=== PATIENT | female | born 1965 | race Caucasian/White ===

== ENCOUNTER 2017-11-18 19:21 | Emergency (ER) | payer MEDICAID ==
[~2017-11-18] VITALS: Ht 157.5 cm; Wt 72.9 kg
[2017-11-18 19:29] VITALS: BP 191/86; PULSE 99; RESP 14; TEMP 98.7; O2SAT 98
[2017-11-18] MEDS ORDERED: SODIUM CHLOR 0.9% 1000 ML INJ 1,000 ML IV SCH (19:39)
[2017-11-18] MEDS ORDERED: SODIUM CHLORIDE 0.9% FLUSH 10 ML FLUSH IV FLUSH PRN (19:45)
[2017-11-18] MEDS ORDERED: KETOROLAC TROMETHAMINE 30 MG/ML (IVP) VIAL IVP ONE (19:45)
[2017-11-18] MEDS ORDERED: metroNIDAZOLE 500 MG INJ 100 ML IV ONE (19:45)
[2017-11-18 19:58] VITALS: O2SAT 98
[2017-11-18 20:00] LABS: AUTOMATED NEUTROPHIL # 12.2 TH/MM3 (1.8-7.7); BASOPHIL # 0.4 TH/MM3 (0-0.2); BASOPHIL % 2.9 % (0.0-2.0); EOSINOPHIL # 0.1 TH/MM3 (0-0.4); EOSINOPHIL % 0.8 % (0.0-4.0); HEMATOCRIT 43.7 % (35.0-46.0); HEMOGLOBIN 14.4 GM/DL (11.6-15.3); LYMPH % 10.8 % (9.0-44.0); LYMPHOCYTE # 1.6 TH/MM3 (1.0-4.8); MEAN CELL VOLUME 88.5 FL (80.0-100.0); MEAN CORPUSCULAR HEMOGLOBIN 29.2 PG (27.0-34.0); MEAN PLATELET VOLUME 9.4 FL (7.0-11.0); MONOCYTE # 0.6 TH/MM3 (0-0.9); NEUT % 81.5 % (16.0-70.0); PLATELET COUNT 192 TH/MM3 (150-450); RED BLOOD COUNT 4.94 MIL/MM3 (4.00-5.30); RED CELL DISTRIBUTION WIDTH 13.5 % (11.6-17.2); WHITE BLOOD COUNT 14.9 TH/MM3 (4.0-11.0)
[2017-11-18 20:10] LABS: CHLORIDE 102 MEQ/L (98-107); SODIUM (NA) 136 MEQ/L (136-145)
[2017-11-18 20:13] LABS: CALCIUM 9.4 MG/DL (8.5-10.1)
[2017-11-18 20:14] LABS: ALBUMIN 4.3 GM/DL (3.4-5.0); BICARBONATE 27.6 MEQ/L (21.0-32.0); BLOOD UREA NITROGEN 18 MG/DL (7-18); GLUCOSE,RANDOM 103 MG/DL (74-106)
[2017-11-18 20:17] LABS: ALT (GPT) 85 U/L (10-53); AST (GOT) 87 U/L (15-37); CREATININE 0.61 MG/DL (0.50-1.00); GLOMERULAR FILTRATION RATE 102 ML/MIN (>89)
[2017-11-18 20:18] LABS: TOTAL BILIRUBIN ADULT 0.6 MG/DL (0.2-1.0); TOTAL PROTEIN 8.2 GM/DL (6.4-8.2)
[2017-11-18 20:20] LABS: ALKALINE PHOSPHATASE 125 U/L (45-117)
[2017-11-18 20:39] LABS: BILIRUBIN, URINE NEG (NEG); BLOOD, URINE MOD (NEG); GLUCOSE,URINE NEG (NEG); KETONE, URINE NEG (NEG); NITRITE,URINE POS (NEG); PH, URINE 6.5 (5.0-8.5); URINE COLOR YELLOW (YELLW/STRAW); URINE LEUKOCYTE ESTERASE MOD (NEG)
--- NOTE | 2017-11-18 20:44 | RADRPT ---
EXAM DATE/TIME: 11/18/2017 20:23 [place] COMPARISON: No previous studies available for comparison. INDICATIONS : Flank pain. ORAL CONTRAST: No oral contrast ingested. RADIATION DOSE: 13.42 CTDIvol (mGy) MEDICAL HISTORY : Hypertension. SURGICAL HISTORY : Appendectomy. ENCOUNTER: Initial ACUITY: 1 day PAIN SCALE: 5/10 LOCATION: flank TECHNIQUE: Volumetric scanning of the abdomen and pelvis was performed. Using automated exposure control and ad justment of the mA and/or kV according to patient size, radiation dose was kept as low as reasonably achievable to obtain optimal diagnostic quality images. DICOM format image data is available electro nically for review and comparison. FINDINGS: LOWER LUNGS: The visualized lower lungs are clear. LIVER: Homogeneous density without lesion. There is no dilation of the biliary tree. No calcified gallston es. SPLEEN: Normal size without lesion. PANCREAS: Within normal limits. KIDNEYS: Normal in size and shape. There is no mass, stone, or hydronephrosis. ADRENAL GLANDS: Within normal limits. VASCULAR: There is no aortic aneurysm. BOWEL/MESENTERY: The stomach, small bowel, and colon demonstrate no acute abnormality. There is no free intraperitone al air or fluid. ABDOMINAL WALL: Within normal limits. RETROPERITONEUM: There is no lymphadenopathy. BLADDER: No wall thickening or mass. REPRODUCTIVE: Within normal limits. INGUINAL: There is no lymphadenopathy or hernia. MUSCULOSKELETAL: Within normal limits for patient age. CONCLUSION: No acute obstructive uropathy. Caden Montez MD on November 18, 2017 at 20:40 Board Certified Radiologist. This report was verified electronically.
[2017-11-18 20:53] LABS: BACTERIA, URINE MANY /hpf; SQUAMOUS EPITHELIAL CELL URINE 0-5 /hpf (0-5); WHITE BLOOD CELL CLUMPS FEW
[2017-11-18 21:23] VITALS: BP 185/87; PULSE 90; RESP 16; O2SAT 97
[2017-11-18] MEDS ORDERED: METR250 PO (21:32)
[2017-11-18] MEDS ORDERED: TRAM50 PO (21:32)
--- NOTE | 2017-11-18 21:32 | PD ---
HPI . complaint Chief Complaint: Complaint Time Seen by Provider: 19:34 Travel History International Travel<30 days: No Contact w/Intl Traveler<30days: No Traveled to known affect area: No History of Present Illness HPI 52-year-old female complains of dysuria urgency frequency, fever, bilateral flank pain for the past 2 days. Fevers unquantified. Patient has taken Tylenol for same. Denies any rashes, nausea vomiting diarrhea. Patient has no history of kidney stones but does have a history of urinary tract infection prior PFSH Past Medical History Narrative Medical Past medical history reviewed Arthritis: No Asthma: No Autoimmune Disease: No Blood Disorders: No Anxiety: No Depression: No Heart Rhythm Problems: Yes (SVT) Cancer: No Cardiovascular Problems: Yes High Cholesterol: No Chest Pain: Yes Congestive Heart Failure: No COPD: No Cerebrovascular Accident: No Diabetes: No Diminished Hearing: No Endocrine: No GERD: No Glaucoma: No Genitourinary: No Headaches: Yes (OCCASSIONAL) Hepatitis: No Hiatal Hernia: No Hypertension: Yes Immune Disorder: No Implanted Vascular Access Dvce: Yes Kidney Stones: No Musculoskeletal: No Neurologic: No Psychiatric: No Reproductive: No Respiratory: No Migraines: Yes Myocardial Infarction: No Renal Failure: No Seizures: No Sickle Cell Disease: No Sleep Apnea: No Thyroid Disease: No Ulcer: No Tetanus Vaccination: Unknown Influenza Vaccination: No ?: Not Menopausal: Yes : 3 Para: 3 Past Surgical History Abdominal Surgery: Yes (OPEN 1977) AICD: No Appendectomy: Yes (OPEN 1977) Arteriovenous Shunt: No Body Medical Devices: BREAST IMLANTS Cardiac Surgery: No Cholecystectomy: No Ear Surgery: No Endocrine Surgery: No Eye Surgery: No Genitourinary Surgery: No Gynecologic Surgery: No Insulin Pump: No Joint Replacement: No Oral Surgery: No Pacemaker: No Thoracic Surgery: No Other Surgery: Yes (BREAST AUGMENTATION, Heart Ablation) Social History Alcohol Use: Yes (VERY OCCASSIONAL/WINE) Tobacco Use: Yes Substance Use: No Allergies-Medications (Allergen,Severity, Reaction): Coded Allergies: levofloxacin (Unverified Allergy, Severe, HIVES, SHORTNESS OF BREATH, ) penicillin G (Unverified Allergy, Intermediate, HIVES, 11/18/17) vancomycin (Unverified Allergy, Intermediate, HIVES, SOB, 11/18/17) *MDRO Multi-Drug Resistant Organism (Verified Allergy, Unknown, 03/06/16) MRSA Reported Meds & Prescriptions Reported Meds & Active Scripts Active No Active Prescriptions or Reported Medications Narrative Medication Allergies and medications reviewed Review of Systems Except as stated in HPI: all other systems reviewed are Neg General / Constitutional: Positive: Fever, Chills Eyes: No: Visual changes HENT: No: Headaches, Neck Stiffness, Neck Pain Cardiovascular: No: Chest Pain or Discomfort Respiratory: No: Shortness of Breath Gastrointestinal: No: Nausea, Abdominal Pain Genitourinary: Positive: Urgency, Frequency, Dysuria, Flank Pain, No: Hematuria Musculoskeletal: No: Myalgias, Arthralgias, Pain Skin: No Rash Neurologic: No: Weakness Psychiatric: No: Depression Endocrine: No: Polydipsia Hematologic/Lymphatic: No: Easy Bruising Physical Exam Narrative GENERAL: Awake and alert and oriented 3 no acute distress. Vital signs afebrile normal and stable SKIN: Warm and dry. Color is normal diaphoresis and was HEAD: Atraumatic. Normocephalic. EYES: Pupils equal and round. No scleral icterus. No injection or drainage. ENT: No nasal bleeding or discharge. Mucous membranes pink and moist. NECK: Trachea midline. No JVD. Supple nontender full range of motion CARDIOVASCULAR: Regular rate and rhythm. S1-S2 no murmurs rubs gallops RESPIRATORY: No accessory muscle use. Clear to auscultation. Breath sounds equal bilaterally. GASTROINTESTINAL: Abdomen soft, non-tender, nondistended. Hepatic and splenic margins not palpable. CVA tenderness bilateral MUSCULOSKELETAL: Extremities without clubbing, cyanosis, or edema. No obvious deformities. NEUROLOGICAL: Awake and alert. No obvious cranial nerve deficits. Motor grossly within normal limits. Five out of 5 muscle strength in the arms and legs. Normal speech. PSYCHIATRIC: Appropriate mood and affect; insight and judgment normal. Data Data Last Documented VS Vital Signs Date Time Temp Pulse Resp B/P (MAP) Pulse Ox O2 Delivery O2 Flow Rate FiO2 11/18/17 21:23 90 16 185/87 (119) 97 Room Air 11/18/17 19:29 98.7 Orders Orders Complete Blood Count With Diff (11/18/17 19:39) Comprehensive Metabolic Panel (11/18/17 19:39) Urinalysis - C+S If Indicated (11/18/17 19:39) Ct Abd/Pel W/O Iv Contrast (11/18/17 19:39) Iv Access Insert/Monitor (11/18/17 19:39) Ecg Monitoring (11/18/17 19:39) Oximetry (11/18/17 19:39) Metronidazole 500 Mg Inj (Flagyl 500 Mg (11/18/17 19:45) Sodium Chlor 0.9% 1000 Ml Inj (Ns 1000 M (11/18/17 19:39) Sodium Chloride 0.9% Flush (Ns Flush) (11/18/17 19:45) Ketorolac Inj (Toradol Inj) (11/18/17 19:45) Ed Urine Pregnancytest Poc (11/18/17 19:39) Urine Culture (11/18/17 20:30) Hepatitis Profile (11/18/17 20:54) Labs Laboratory Tests Test 11/18/17 19:49 3 20:30 White Blood Count 14.9 TH/MM3 Red Blood Count 4.94 MIL/MM3 Hemoglobin 14.4 GM/DL Hematocrit 43.7 % Mean Corpuscular Volume 88.5 FL Mean Corpuscular Hemoglobin 29.2 PG Mean Corpuscular Hemoglobin Concent 33.0 % Red Cell Distribution Width 13.5 % Platelet Count 192 TH/MM3 Mean Platelet Volume 9.4 FL Neutrophils (%) (Auto) 81.5 % Lymphocytes (%) (Auto) 10.8 % Monocytes (%) (Auto) 4.0 % Eosinophils (%) (Auto) 0.8 % Basophils (%) (Auto) 2.9 % Neutrophils # (Auto) 12.2 TH/MM3 Lymphocytes # (Auto) 1.6 TH/MM3 Monocytes # (Auto) 0.6 TH/MM3 Eosinophils # (Auto) 0.1 TH/MM3 Basophils # (Auto) 0.4 TH/MM3 CBC Comment DIFF FINAL Differential Comment Blood Urea Nitrogen 18 MG/DL Creatinine 0.61 MG/DL Random Glucose 103 MG/DL Total Protein 8.2 GM/DL Albumin 4.3 GM/DL Calcium Level 9.4 MG/DL Alkaline Phosphatase 125 U/L Aspartate Amino Transf (AST/SGOT) 87 U/L Alanine Aminotransferase (ALT/SGPT) 85 U/L Total Bilirubin 0.6 MG/DL Sodium Level 136 MEQ/L Potassium Level 3.9 MEQ/L Chloride Level 102 MEQ/L Carbon Dioxide Level 27.6 MEQ/L Anion Gap 6 MEQ/L Estimat Glomerular Filtration Rate 102 ML/MIN Urine Color YELLOW Urine Turbidity SL CLOUDY Urine pH 6.5 Urine Specific [place] 1.010 Urine Protein NEG mg/dL Urine Glucose (UA) NEG mg/dL Urine Ketones NEG mg/dL Urine Occult Blood MOD Urine Nitrite POS Urine Bilirubin NEG Urine Urobilinogen 0.2 MG/DL Urine Leukocyte Esterase MOD Urine RBC 4-9 /hpf Urine WBC 50-99 /hpf Urine WBC Clumps FEW Urine Squamous Epithelial Cells 0-5 /hpf Urine Bacteria MANY /hpf Microscopic Urinalysis Comment CULTURE INDICATED MDM Medical Decision Making Medical Screen Exam Complete: Yes Emergency Medical Condition: Yes Medical Record Reviewed: Yes Differential Diagnosis Urinary tract infection, pyelonephritis, infected kidney stone Narrative Course Laboratory examinations reviewed, patient has elevated white blood cell count, and urinalysis consistent with urinary tract infection. Patient also has incidental notation of elevated liver function test. This was discussed with patient patient does not recall having this before patient does not recall having history of viral hepatitis. Patient treated with IV antibiotics and IV fluids as well as IV pain medications and noted significant improvement. Patient is tolerating p.o. well, looks greatly improved. Discharge Diagnosis Primary Impression: Pyelonephritis Additional Impressions: Abnormal liver function test Hepatitis Patient Instructions: General Instructions, Kidney Infection (ED), Liver Profile (GEN) Additional Instructions: Flagyl 250 mg 3 times daily for 7 days. Drink plenty of fluids. Your liver function tests were elevated, a hepatitis profile was sent for evaluation. Results within 3-5 days. Follow-up with your primary care provider. Return promptly for worsening Scripts Tramadol (Ultram) 50 Mg Tab 50 MG PO Q8H Y for PAIN, #10 TAB 0 Refills Prov: Bernard Stout MD 11/18/17 Metronidazole (Flagyl) 250 Mg Tab 250 MG PO TID for Infection for 7 Days, TAB 0 Refills Prov: Bernard Stout MD 11/18/17 Disposition: 01 DISCHARGE HOME Condition: Stable Bernard Stout MD Nov 18, 2017 21:32
[2017-11-18 21:49] VITALS: BP 180/86
[2017-11-21 10:18] LABS: HEPATITIS A AB IGM NEGATIVE (NEGATIVE); HEPATITIS B CORE AB IGM NEGATIVE (NEGATIVE)
== END 2017-11-18 22:00 | disposition home or self-care (01) ==
LOC: PHED 19:21
DX: N12 Tubulo-interstitial nephritis, not specified as acute or chronic (principal); B96.20 Unspecified Escherichia coli [E. coli] as the cause of diseases classified elsewhere; R79.89 Other specified abnormal findings of blood chemistry; K75.9 Inflammatory liver disease, unspecified; Z72.0 Tobacco use
CPT/HCPCS: 74176; 80053; 80074; 81001; 84703; 85025; 87077; 87086; 87186; 96365; 96366; 96375; 99284; J1885; J7030

== ENCOUNTER 2017-11-21 08:40 | Inpatient (IN) | payer MEDICAID ==
[~2017-11-21] VITALS: Ht 157.5 cm; Wt 80.2 kg
[~2017-11-21 08:40] MED LIST: METR250 PO; TRAM50 PO
[2017-11-21 08:43] VITALS: BP 128/95; PULSE 112; RESP 18; TEMP 98; O2SAT 98
[2017-11-21 09:08] LABS: BILIRUBIN, URINE MOD (NEG); BLOOD, URINE LARGE (NEG); GLUCOSE,URINE NEG (NEG); KETONE, URINE 15 mg/dL (NEG); NITRITE,URINE POS (NEG); PH, URINE 5.5 (5.0-8.5); URINE LEUKOCYTE ESTERASE MOD (NEG)
[2017-11-21] MEDS ORDERED: AZTREONAM INJ 1,000 MG in SODIUM CHLORIDE 0.9% INJ 100 ML IV STA (09:14)
[2017-11-21] MEDS ORDERED: GENTAMICIN IV STA (09:14)
[2017-11-21] MEDS ORDERED: SODIUM CHLORIDE 0.9% IV STA (09:14)
[2017-11-21 09:15] LABS: URINE COLOR AMBER (YELLW/STRAW)
--- NOTE | 2017-11-21 09:18 | PD ---
HPI Chief Complaint: Complaint Time Seen by Provider: 09:00 Travel History International Travel<30 days: No Contact w/Intl Traveler<30days: No Traveled to known affect area: No History of Present Illness HPI This 52-year-old female is complaining of right flank pain fever. She was a patient here last Tuesday. At that time she was complaining of flank pain. She been having fever she was found to have a urinary tract infection. Her white count was 14,000. Her urine showed 50-99 white cells. Culture has grown E. coli which is resistant to sulfa. She had a CT scan which was negative for calculi. she had been started on Flagyl 250 mg 3 times a day. She says she has not improved. She has had fever as high as 103.7 on Tuesday. She has had drenching sweats. She has had a lot of flank pain, the right is a lot worse than the left. She has had urinary tract infection in the past. She has also been treated for hypertension in the past but she did not tolerate medications well. Since a lot of the medications made her lethargic and she is not taking anything now. History Past Medical History Tetanus Vaccination: > 5 Years Influenza Vaccination: No Menopausal: Yes : 3 Para: 3 Social History Alcohol Use: Yes (OCCASSIONAL/WINE) Tobacco Use: Yes (1/2 ppd) Allergies-Medications (Allergen,Severity, Reaction): Coded Allergies: levofloxacin (Unverified Allergy, Severe, HIVES, SHORTNESS OF BREATH, ) penicillin G (Unverified Allergy, Intermediate, HIVES, 11/21/17) vancomycin (Unverified Allergy, Intermediate, HIVES, SOB, 11/21/17) *MDRO Multi-Drug Resistant Organism (Verified Allergy, Unknown, 11/21/17) MRSA sulfamethoxazole (Verified Allergy, Unknown, 11/21/17) trimethoprim (Verified Allergy, Unknown, 11/21/17) Reported Meds & Prescriptions Reported Meds & Active Scripts Active Ultram (Tramadol HCl) 50 Mg Tab 50 Mg PO Q8H PRN Flagyl (Metronidazole) 250 Mg Tab 250 Mg PO TID 7 Days Review of Systems General / Constitutional: Positive: Fever, Chills Eyes: No: Diploplia, Blurred Vision HENT: No: Headaches, Vertigo Cardiovascular: No: Chest Pain or Discomfort, Palpitations Respiratory: No: Cough, Shortness of Breath Gastrointestinal: No: Nausea, Constipation Genitourinary: Positive: Frequency, Flank Pain Musculoskeletal: No: Myalgias, Arthralgias Skin: No Rash, No Itching Neurologic: Positive: Weakness Endocrine: No: Heat Intolerance, Cold Intolerance Hematologic/Lymphatic: No: Easy Bruising Physical Exam Narrative GENERAL: Well-developed female SKIN: Focused skin assessment warm/dry. HEAD: Atraumatic. Normocephalic. EYES: Pupils equal and round. No scleral icterus. No injection or drainage. ENT: No nasal bleeding or discharge. Mucous membranes pink and moist. NECK: Trachea midline. No JVD. CARDIOVASCULAR: Regular rate and rhythm. No murmur appreciated. RESPIRATORY: No accessory muscle use. Clear to auscultation. Breath sounds equal bilaterally. GASTROINTESTINAL: Abdomen soft, non-tender, nondistended. Hepatic and splenic margins not palpable. There is right CVA tenderness MUSCULOSKELETAL: No obvious deformities. No clubbing. No cyanosis. No edema. NEUROLOGICAL: Awake and alert. No obvious cranial nerve deficits. Motor grossly within normal limits. Normal speech. PSYCHIATRIC: Appropriate mood and affect; insight and judgment normal. Data Data Last Documented VS Vital Signs Date Time Temp Pulse Resp B/P (MAP) Pulse Ox O2 Delivery O2 Flow Rate FiO2 11/21/17 10:35 17 11/21/17 08:43 98.0 112 128/95 (106) 98 Orders Orders Urinalysis - C+S If Indicated (11/21/17 08:47) Sepsis Workup Initiated (11/21/17 ) Complete Blood Count With Diff (11/21/17 09:14) Comprehensive Metabolic Panel (11/21/17 09:14) Lactic Acid Sepsis Protocol (11/21/17 09:14) Blood Culture (11/21/17 09:14) Ecg Monitoring (11/21/17 09:14) Iv Access Insert/Monitor (11/21/17 09:14) Oximetry (11/21/17 09:14) Aztreonam Inj (Azactam Inj) (11/21/17 09:14) Gentamicin Inj (Gentamicin Inj) (11/21/17 09:14) Sodium Chlor 0.9% 1000 Ml Inj (Ns 1000 M (11/21/17 09:30) Ibuprofen (Motrin) (11/21/17 09:30) Urine Culture (11/21/17 08:50) Labs Laboratory Tests Test 11/21/17 08:50 11/21/17 09:15 11/21/17 09:20 11/21/17 09:55 Urine Color [place]AB[place]A Urine Turbidity CLOUDY Urine pH 5.5 Urine Specific [place] 1.025 Urine Protein 300 OR GREATER mg/dL Urine Glucose (UA) NEG mg/dL Urine Ketones 15 mg/dL Urine Occult Blood LARGE Urine Nitrite POS Urine Bilirubin MOD Urine Leukocyte Esterase MOD Urine RBC 4-9 /hpf Urine WBC 100-200 /hpf Urine WBC Clumps MOD Urine Squamous Epithelial Cells > 8 /hpf Urine Amorphous Sediment FEW Urine Bacteria MANY /hpf Microscopic Urinalysis Comment CULTURE INDICATED White Blood Count 16.2 TH/MM3 Red Blood Count 4.90 MIL/MM3 Hemoglobin 14.9 GM/DL Hematocrit 43.6 % Mean Corpuscular Volume 88.9 FL Mean Corpuscular Hemoglobin 30.4 PG Mean Corpuscular Hemoglobin Concent 34.2 % Red Cell Distribution Width 13.5 % Platelet Count 168 TH/MM3 Mean Platelet Volume 9.0 FL Neutrophils (%) (Auto) 91.4 % Lymphocytes (%) (Auto) 2.5 % Monocytes (%) (Auto) 5.0 % Eosinophils (%) (Auto) 0.3 % Basophils (%) (Auto) 0.8 % Neutrophils # (Auto) 14.9 TH/MM3 Lymphocytes # (Auto) 0.4 TH/MM3 Monocytes # (Auto) 0.8 TH/MM3 Eosinophils # (Auto) 0.0 TH/MM3 Basophils # (Auto) 0.1 TH/MM3 CBC Comment DIFF FINAL Differential Comment Lactic Acid Level 1.5 mmol/L Blood Urea Nitrogen 16 MG/DL Creatinine 1.00 MG/DL Random Glucose 127 MG/DL Total Protein 7.7 GM/DL Albumin 2.7 GM/DL Calcium Level 9.5 MG/DL Alkaline Phosphatase 211 U/L Aspartate Amino Transf (AST/SGOT) 43 U/L Alanine Aminotransferase (ALT/SGPT) 99 U/L Total Bilirubin 2.2 MG/DL Sodium Level 134 MEQ/L Potassium Level 4.2 MEQ/L Chloride Level 103 MEQ/L Carbon Dioxide Level 23.6 MEQ/L Anion Gap 7 MEQ/L Estimat Glomerular Filtration Rate 58 ML/MIN [facility] Medical Decision Making Medical Screen Exam Complete: Yes Emergency Medical Condition: Yes Medical Record Reviewed: Yes Differential Diagnosis Differential includes pyelonephritis, renal colic Narrative Course Patient has not responded to Flagyl. She does have multiple drug allergies including penicillin sulfa vancomycin and Levaquin. I have initiated aztreonam and gentamicin. She has failed outpatient treatment. White count today is 16, 000 Diagnosis Primary Impression: Urinary tract infection Admitting Information Admitting Physician Requests: Admit Gama Alonso MD Nov 21, 2017 09:18
[2017-11-21 09:25] LABS: AMORPHOUS SEDIMENT, URINE FEW; BACTERIA, URINE MANY /hpf; SQUAMOUS EPITHELIAL CELL URINE > 8 /hpf (0-5); WBC, URINE 100-200 /hpf (0-5)
[2017-11-21 09:26] LABS: WHITE BLOOD CELL CLUMPS MOD
[2017-11-21] MEDS ORDERED: IBUPROFEN 400 MG TAB PO ONE (09:30)
[2017-11-21] MEDS ORDERED: SODIUM CHLOR 0.9% 1000 ML INJ 1,000 ML IV ONE (09:30)
[2017-11-21 09:48] LABS: AUTOMATED NEUTROPHIL # 14.9 TH/MM3 (1.8-7.7); BASOPHIL # 0.1 TH/MM3 (0-0.2); BASOPHIL % 0.8 % (0.0-2.0); EOSINOPHIL % 0.3 % (0.0-4.0); HEMATOCRIT 43.6 % (35.0-46.0); HEMOGLOBIN 14.9 GM/DL (11.6-15.3); LYMPH % 2.5 % (9.0-44.0); LYMPHOCYTE # 0.4 TH/MM3 (1.0-4.8); MEAN CELL VOLUME 88.9 FL (80.0-100.0); MEAN CORPUSCULAR HEMOGLOBIN 30.4 PG (27.0-34.0); MEAN CORPUSCULAR HGB CONC 34.2 % (32.0-36.0); MONOCYTE # 0.8 TH/MM3 (0-0.9); NEUT % 91.4 % (16.0-70.0); PLATELET COUNT 168 TH/MM3 (150-450); RED CELL DISTRIBUTION WIDTH 13.5 % (11.6-17.2); WHITE BLOOD COUNT 16.2 TH/MM3 (4.0-11.0)
[2017-11-21 10:16] LABS: CHLORIDE 103 MEQ/L (98-107); SODIUM (NA) 134 MEQ/L (136-145)
[2017-11-21 10:19] LABS: CALCIUM 9.5 MG/DL (8.5-10.1)
[2017-11-21 10:29] LABS: ALBUMIN 2.7 GM/DL (3.4-5.0); ALKALINE PHOSPHATASE 211 U/L (45-117); ALT (GPT) 99 U/L (10-53); AST (GOT) 43 U/L (15-37); BICARBONATE 23.6 MEQ/L (21.0-32.0); BLOOD UREA NITROGEN 16 MG/DL (7-18); GLOMERULAR FILTRATION RATE 58 ML/MIN (>89); GLUCOSE,RANDOM 127 MG/DL (74-106); TOTAL BILIRUBIN ADULT 2.2 MG/DL (0.2-1.0); TOTAL PROTEIN 7.7 GM/DL (6.4-8.2)
[2017-11-21 11:20] VITALS: RESP 17; O2SAT 97
[2017-11-21 11:28] VITALS: BP 127/71; PULSE 87; RESP 17; O2SAT 98
[2017-11-21] MEDS ORDERED: SODIUM CHLORIDE 0.9% FLUSH 10 ML FLUSH IV FLUSH PRN (11:30)
[2017-11-21] MEDS ORDERED: ACETAMINOPHEN 325 MG TAB PO PRN (11:30)
[2017-11-21] MEDS ORDERED: SENNOSIDES 8.6 MG TAB PO PRN (11:30)
[2017-11-21] MEDS ORDERED: NALOXONE HCL 0.4 MG/ML AMP IV PUSH PRN (11:30)
[2017-11-21] MEDS: SODIUM CHLOR 0.9% 1000 ML INJ 1,000 ML IV SCH ×2 (12:54→22:05)
[2017-11-21 13:00] VITALS: BP 129/97; PULSE 88; RESP 16; TEMP 97.9; O2SAT 94
--- NOTE | 2017-11-21 13:45 | HHI.HP ---
[facility] Service [place] [facility] Primary Care Physician No Primary Care Physician Admission Diagnosis UTI Diagnoses: Chief Complaint: Fever with the dysuria Travel History International Travel<30 Days: No Contact w/Intl Traveler <30 Da: No Traveled to Known Affected Are: No Sepsis Criteria SIRS Criteria (2 or more): Heart rate over 90, WBC > 40884, < 4000 or > 10% bands Sepsis Criteria (SIRS+source): Infect source susp/known Criteria Outcome: Meets sepsis criteria History of Present Illness This patient is a very pleasant 52-year-old female with history of SVT with cardiac ablation. Overall she has been in a reasonable state of health until the last several days when she started having severe dysuria with fever. Her fever was as high as 103.7. She came to the hospital on Tuesday with these complaints and was given antibiotics for urinary tract infection. Cultures have since resulted in it is an E. coli which is sensitive to multiple antibiotics however the patient has a allergy profile which reports severe sensitivity to levofloxacin, penicillin vancomycin, sulfa and trimethoprim. Is seen back in the emergency room today due to increased symptoms of fever and dysuria despite antibiotic therapy with metronidazole. Patient has been admitted to the hospital for treatment of urinary tract infection with evidence of sepsis. Patient has leukocytosis, fever and the source appears to be a urinary tract infection. Review of Systems Constitutional: DENIES: Diaphoretic episodes, Fatigue, Fever, Weight gain, Weight loss, Chills, Dizziness, Change in appetite, Night Sweats Endocrine: DENIES: Abnorml menstrual pattern, Heat/cold intolerance, Polydipsia , Polyuria, Polyphagia Eyes: DENIES: Blurred vision, Diplopia, Eye inflammation, Eye pain, Vision loss , Photosensitivity, Double Vision Ears, nose, mouth, throat: DENIES: Tinnitus, Hearing loss, Vertigo, Nasal discharge, Oral lesions, Throat pain, Hoarseness, Ear Pain, Running Nose, Epistaxis, Sinus Pain, Toothache, Odynophagia Respiratory: DENIES: Apneas, Cough, Snoring, Wheezing, Hemoptysis, Sputum production, Shortness of breath Cardiovascular: DENIES: Chest pain, Palpitations, Syncope, Dyspnea on Exertion , PND, Lower Extremity Edema, Orthopnea, Claudication Gastrointestinal: DENIES: Abdominal pain, Black stools, Bloody stools, Constipation, Diarrhea, Nausea, Vomiting, Difficulty Swallowing, Anorexia Genitourinary: COMPLAINS OF: Urinary frequency, Urgency, Dysuria, DENIES: Abnormal vaginal bleeding, Dysmenorrhea, Dyspareunia, Sexual dysfunction, Urinary incontinence, Hematuria, Nocturia, Vaginal discharge Musculoskeletal: COMPLAINS OF: Back pain, DENIES: Joint pain, Muscle aches, Stiffness, Joint Swelling, Neck pain Integumentary: DENIES: Abnormal pigmentation, Pruritus, Rash, Nail changes, Breast masses, Breast skin changes, Nipple discharge Hematologic/lymphatic: DENIES: Bruising, Lymphadenopathy Immunologic/allergic: DENIES: Eczema, Urticaria Neurologic: DENIES: Abnormal gait, Headache, Localized weakness, Paresthesias, Seizures, Speech Problems, Tremor, Poor Balance Psychiatric: DENIES: Anxiety, Confusion, Mood changes, Depression, Hallucinations, Agitation, Suicidal Ideation, Homicidal Ideation, Delusions Except as stated in HPI: all other systems reviewed are Neg Past Family Social History Past Medical History Arthritis SVT Past Surgical History Denies appendectomy Breast surgery Cardiac ablation Reported Medications Reviewed in the EMR, no prescription medications, takes ibuprofen as needed Allergies: Coded Allergies: levofloxacin (Unverified Allergy, Severe, HIVES, SHORTNESS OF BREATH, ) penicillin G (Unverified Allergy, Intermediate, HIVES, 11/21/17) vancomycin (Unverified Allergy, Intermediate, HIVES, SOB, 11/21/17) *MDRO Multi-Drug Resistant Organism (Verified Allergy, Unknown, 11/21/17) MRSA sulfamethoxazole (Verified Allergy, Unknown, 11/21/17) trimethoprim (Verified Allergy, Unknown, 11/21/17) Active Ordered Medications Reviewed in the EMR Family History Mother had diabetes and from complications of UTI with sepsis Father is alive and well Social History Patient smokes 1-1/2 packs a day for the last 20 years 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 SKIN: No rashes, ecchymoses or lesions. Cool and dry. HEAD: Atraumatic. Normocephalic. No temporal or scalp tenderness. EYES: Pupils equal round and reactive. Extraocular motions intact. No scleral icterus. No injection or drainage. ENT: Nose without bleeding, purulent drainage or septal hematoma. Throat without erythema, tonsillar hypertrophy or exudate. Uvula midline. Airway patent. NECK: Trachea midline. No JVD or lymphadenopathy. Supple, nontender, no meningeal signs. CARDIOVASCULAR: Regular rate and rhythm without murmurs, gallops, or rubs. RESPIRATORY: Clear to auscultation. Breath sounds equal bilaterally. No wheezes , rales, or rhonchi. GASTROINTESTINAL: Abdomen soft, non-tender, nondistended. No hepato-splenomegaly , or palpable masses. No guarding. MUSCULOSKELETAL: Right-sided flank pain, extremities without clubbing, cyanosis , or edema. No joint tenderness, effusion, or edema noted. No calf tenderness. Negative Homans sign bilaterally. NEUROLOGICAL: Awake and alert. Cranial nerves II through XII intact. Motor and sensory grossly within normal limits. Five out of 5 muscle strength in all muscle groups. Normal speech. Laboratory Laboratory Tests Test 11/21/17 08:50 11/21/17 09:15 11/21/17 09:20 11/21/17 09:55 Urine Color ARABELLA Urine Turbidity CLOUDY Urine pH 5.5 Urine Specific [place] 1.025 Urine Protein 300 OR GREATER Urine Glucose (UA) NEG Urine Ketones 15 Urine Occult Blood LARGE Urine Nitrite POS Urine Bilirubin MOD Urine Urobilinogen Urine Leukocyte Esterase MOD Urine RBC 4-9 Urine WBC 100-200 Urine WBC Clumps MOD Urine Squamous Epithelial Cells > 8 Urine Amorphous Sediment FEW Urine Bacteria MANY Microscopic Urinalysis Comment CULTURE INDICATED White Blood Count 16.2 Red Blood Count 4.90 Hemoglobin 14.9 Hematocrit 43.6 Mean Corpuscular Volume 88.9 Mean Corpuscular Hemoglobin 30.4 Mean Corpuscular Hemoglobin Concent 34.2 Red Cell Distribution Width 13.5 Platelet Count 168 Mean Platelet Volume 9.0 Neutrophils (%) (Auto) 91.4 Lymphocytes (%) (Auto) 2.5 Monocytes (%) (Auto) 5.0 Eosinophils (%) (Auto) 0.3 Basophils (%) (Auto) 0.8 Neutrophils # (Auto) 14.9 Lymphocytes # (Auto) 0.4 Monocytes # (Auto) 0.8 Eosinophils # (Auto) 0.0 Basophils # (Auto) 0.1 CBC Comment DIFF FINAL Differential Comment Lactic Acid Level 1.5 Blood Urea Nitrogen 16 Creatinine 1.00 Random Glucose 127 Total Protein 7.7 Albumin 2.7 Calcium Level 9.5 Alkaline Phosphatase 211 Aspartate Amino Transf (AST/SGOT) 43 Alanine Aminotransferase (ALT/SGPT) 99 Total Bilirubin 2.2 Sodium Level 134 Potassium Level 4.2 Chloride Level 103 Carbon Dioxide Level 23.6 Anion Gap 7 Estimat Glomerular Filtration Rate 58 Date/Time Source Procedure Growth Status 11/21/17 09:20 Blood Peripheral Aerobic Blood Culture Pending Received 11/21/17 09:20 Blood Peripheral Anaerobic Blood Culture Pending Received 11/21/17 08:50 Urine Clean Catch Urine Culture Pending Received Result Diagram: 11/21/17 0915 11/21/17 0955 Septic Shock Reassessment Septic shock perfusion: reassessment completed Caprini VTE Risk Assessment Caprini VTE Risk Assessment: No/Low Risk (score <= 1) Caprini Risk Assessment Model Point Value = 1 Point Value = 2 Point Value = 3 Point Value = 5 Age 41-60 Minor surgery BMI > 25 kg/m2 Swollen legs Varicose veins or History of unexplained or recurrent spontaneous Oral contraceptives or hormone replacement Sepsis (< 1 month) Serious lung disease, including pneumonia (< 1 month) Abnormal pulmonary function Acute myocardial infarction Congestive heart failure (< 1 month) History of inflammatory bowel disease Medical patient at bed rest Age 61-74 Arthroscopic surgery Major open surgery (> 45 min) Laparoscopic surgery (> 45 min) Malignancy Confined to bed (> 72 hours) Immobilizing plaster cast Central venous access Age >= 75 History of VTE Family history of VTE Factor V Leiden Prothrombin [id number] Lupus anticoagulant Anticardiolipin antibodies Elevated serum homocysteine Heparin-induced thrombocytopenia Other congenital or acquired thrombophilia Stroke (< 1 month) Elective arthroplasty Hip, pelvis, or leg fracture Acute spinal cord injury (< 1 month) Prophylaxis Regimen Total Risk Factor Score Risk Level Prophylaxis Regimen 0-1 Low Early ambulation 2 Moderate Order ONE of the following: *Sequential Compression Device (SCD) *Heparin 5000 units SQ BID 3-4 Higher Order ONE of the following medications: *Heparin 5000 units SQ TID *Enoxaparin/Lovenox 40 mg SQ daily (WT < 150 kg, CrCl > 30 mL/min) *Enoxaparin/Lovenox 30 mg SQ daily (WT < 150 kg, CrCl > 10-29 mL/min) *Enoxaparin/Lovenox 30 mg SQ BID (WT < 150 kg, CrCl > 30 mL/min) AND/OR *Sequential Compression Device (SCD) 5 or more Highest Order ONE of the following medications: *Heparin 5000 units SQ TID (Preferred with Epidurals) *Enoxaparin/Lovenox 40 mg SQ daily (WT < 150 kg, CrCl > 30 mL/min) *Enoxaparin/Lovenox 30 mg SQ daily (WT < 150 kg, CrCl > 10-29 mL/min) *Enoxaparin/Lovenox 30 mg SQ BID (WT < 150 kg, CrCl > 30 mL/min) AND *Sequential Compression Device (SCD) Assessment and Plan Problem List: (1) Urinary tract infection ICD Code: N39.0 - Urinary tract infection, site not specified Status: Acute Plan: Patient will continue with IV antibiotics, will follow up cultures from blood and urine Continue with pain medication renal us r/o stone Code Status full code Discussed Condition With patient, daughter Physician Certification 2 Midnight Certification Type: Admission for Inpatient Services Order for Inpatient Services The services are ordered in accordance with Medicare regulations or non- Medicare payer requirements, as applicable. In the case of services not specified as inpatient-only, they are appropriately provided as inpatient services in accordance with the 2-midnight benchmark. Estimated LOS (days): 3 3 days is the estimated time the patient will need to remain in the hospital, assuming treatment plan goals are met and no additional complications. Post-Hospital Plan: Carola Valdes MD Nov 21, 2017 13:45
[2017-11-21] MEDS: IBUPROFEN 400 MG TAB PO PRN ×2 (14:25→22:06)
--- NOTE | 2017-11-21 14:49 | RADRPT ---
EXAM DATE/TIME: 11/21/2017 13:45 [facility] COMPARISON: No previous studies available for comparison. INDICATIONS : Flank pain. Urinary tract infection. MEDICAL HISTORY : Hypertension. Methicillin-resistant Staphylococcus aureus. Flank pain. Urinary tract infection. Dys uria. SURGICAL HISTORY : Appendectomy. Breast augmentation. Cardiac ablation. ENCOUNTER: Initial ACUITY: 1 day PAIN SCORE: 4/10 LOCATION: Bilateral flank MEASUREMENTS: RIGHT KIDNEY: 13.1 x 5.8 x 7.9 cm LEFT KIDNEY: 11.7 x 5.4 x 5.9 cm FINDINGS: RIGHT KIDNEY: Renal cortex is normal in thickness and echotexture. No hydronephrosis, stone, or mass. LEFT KIDNEY: Renal cortex is normal in thickness and echotexture. No hydronephrosis, stone, or mass. BLADDER: Within normal limits given the degree of distension. CONCLUSION: Normal examination. Rafiq Sandoval Jr., MD on November 21, 2017 at 14:47 Board Certified Radiologist. This report was verified electronically.
[2017-11-21 16:00] VITALS: BP 142/89; PULSE 98; RESP 14; TEMP 98.6; O2SAT 98
[2017-11-21] MEDS ORDERED: ONDANSETRON HCL 4 MG/2 ML VIAL IV PUSH PRN (17:00)
[2017-11-21] MEDS: diphenhydrAMINE HCL 50 MG/ML VIAL IV PUSH PRN ×2 (17:11→23:39)
[2017-11-21 20:00] VITALS: BP 136/72; PULSE 95; RESP 18; TEMP 98.5; O2SAT 96
[2017-11-21] MEDS: AZTREONAM INJ 1,000 MG in SODIUM CHLORIDE 0.9% INJ 100 ML IV SCH (20:58)
[2017-11-21] MEDS: SODIUM CHLORIDE 0.9% FLUSH 10 ML FLUSH IV FLUSH SCH (21:00)
[2017-11-22] VITALS: BP 141/75; PULSE 91; RESP 19; TEMP 98.3; O2SAT 97
[2017-11-22 06:45] LABS: AUTOMATED NEUTROPHIL # 9.9 TH/MM3 (1.8-7.7); BASOPHIL % 0.3 % (0.0-2.0); EOSINOPHIL # 0.1 TH/MM3 (0-0.4); EOSINOPHIL % 0.9 % (0.0-4.0); HEMATOCRIT 35.9 % (35.0-46.0); LYMPH % 11.1 % (9.0-44.0); LYMPHOCYTE # 1.4 TH/MM3 (1.0-4.8); MEAN CELL VOLUME 89.9 FL (80.0-100.0); MEAN CORPUSCULAR HEMOGLOBIN 30.7 PG (27.0-34.0); MEAN CORPUSCULAR HGB CONC 34.2 % (32.0-36.0); MONO % 9.5 % (0.0-8.0); MONOCYTE # 1.2 TH/MM3 (0-0.9); NEUT % 78.2 % (16.0-70.0); PLATELET COUNT 161 TH/MM3 (150-450); RED BLOOD COUNT 3.99 MIL/MM3 (4.00-5.30); RED CELL DISTRIBUTION WIDTH 13.8 % (11.6-17.2); WHITE BLOOD COUNT 12.6 TH/MM3 (4.0-11.0)
[2017-11-22 07:03] LABS: HEMOGLOBIN 12.3 GM/DL (11.6-15.3)
[2017-11-22 07:07] LABS: BICARBONATE 22.9 MEQ/L (21.0-32.0); CALCIUM 8.5 MG/DL (8.5-10.1); CREATININE 0.9 MG/DL (0.50-1.00)
[2017-11-22 08:00] VITALS: BP 144/80; PULSE 87; RESP 18; TEMP 97.8; O2SAT 96
[2017-11-22] MEDS: IBUPROFEN 400 MG TAB PO PRN ×2 (08:51→17:54)
[2017-11-22] MEDS: POLYETHYLENE GLYCOL 17 GM PKG PO SCH (08:51)
[2017-11-22] MEDS: SODIUM CHLOR 0.9% 1000 ML INJ 1,000 ML IV SCH ×2 (08:55→17:55)
[2017-11-22] MEDS: SODIUM CHLORIDE 0.9% FLUSH 10 ML FLUSH IV FLUSH SCH ×2 (08:56→22:09)
[2017-11-22 12:00] VITALS: BP 137/88; PULSE 108; RESP 18; TEMP 97.8; O2SAT 96
[2017-11-22] MEDS ORDERED: POTASSIUM CHLORIDE 10 MEQ CONTROLLED RELEASE TAB PO ONE (12:00)
--- NOTE | 2017-11-22 12:04 | HHI.PR ---
Subjective Remarks Patient seen and evaluated today in follow-up for UTI. Mammogram negative rods in blood and urine cultures today. Patient appears to have a reaction to insect him but would like to continue this with Benadryl. ID consult pending due to patient's allergic reactions to multiple classes of antibiotics Leukocytosis improved Objective Vitals Vital Signs Date Time Temp Pulse Resp B/P (MAP) Pulse Ox O2 Delivery O2 Flow Rate FiO2 11/22/17 08:00 97.8 87 18 144/80 (101) 96 11/22/17 00:00 98.3 91 19 141/75 (97) 97 11/21/17 20:00 98.5 95 18 136/72 (93) 96 11/21/17 16:00 98.6 98 14 142/89 (106) 98 11/21/17 15:25 18 11/21/17 13:00 97.9 88 16 129/97 (108) 94 I/O 11/21/17 11/21/17 11/21/17 11/22/17 11/22/17 11/22/17 07:00 15:00 23:00 07:00 15:00 23:00 Intake Total 1300 ml 1420 ml Balance 1300 ml 1420 ml Intake Oral 100 ml 320 ml IV Total 1200 ml 1100 ml # Voids 4 3 # Bowel Movements 0 Result Diagram: 11/22/17 0523 11/22/17 0523 Imaging Last Impressions Renal Ultrasound 11/21/17 0000 Signed Impressions: Service Date/Time: Tuesday, November 21, 2017 13:45 - CONCLUSION: Normal examination. Rafiq Sandoval Jr., MD Objective Remarks GENERAL: This is a well-nourished, well-developed patient, in no apparent distress. CARDIOVASCULAR: Regular rate and rhythm without murmurs, gallops, or rubs. RESPIRATORY: Clear to auscultation. Breath sounds equal bilaterally. No wheezes , rales, or rhonchi. GASTROINTESTINAL: Abdomen soft, non-tender, nondistended. Normal active bowel sounds MUSCULOSKELETAL: Right flank pain, Extremities without clubbing, cyanosis, or edema. NEURO: Alert & Oriented x4 to person, place, time, situation. Moves all ext x4 A/P Problem List: (1) Urinary tract infection ICD Code: N39.0 - Urinary tract infection, site not specified Status: Acute Plan: Patient will continue with IV antibiotics with Benadryl, will follow up gram-negative rods in urine and blood Continue with pain medication Infectious disease consult pending due to multiple allergies and reactions Carola Aguilar MD Nov 22, 2017 12:04
[2017-11-22] MEDS: diphenhydrAMINE HCL 50 MG/ML VIAL IV PUSH PRN ×2 (12:53→22:05)
[2017-11-22] MEDS: AZTREONAM INJ 1,000 MG in SODIUM CHLORIDE 0.9% INJ 100 ML IV SCH ×2 (12:55→22:07)
[2017-11-22 16:00] VITALS: BP 133/84; PULSE 98; RESP 18; TEMP 97.6; O2SAT 96
--- NOTE | 2017-11-22 18:56 | PD.CONS ---
History of Present Illness Service Infectious disease Consult Requested By Dr Carola Aguilar Reason for Consult Urosepsis- multiple drug allergies Primary Care Physician No Primary Care Physician Diagnoses: (1) Multiple drug allergies (2) Gram negative septicemia (3) Urinary tract infection History of Present Illness 52 y/o started getting sick with painful micturition last - had shaking chills on Tue so came to ER - was sent home on Flagyl- did not feel better- had high fever Sat night and when she was getting worse she came in yesterday- She has multiple drug allergies so given Aztreonam but developed itching so now getting Benadryl . Blood cultures are positive for Gram negative patrica Review of Systems Constitutional: COMPLAINS OF: Diaphoretic episodes, Fever Eyes: DENIES: Blurred vision, Eye inflammation, Eye pain Ears, nose, mouth, throat: DENIES: Nasal discharge, Oral lesions, Throat pain Respiratory: DENIES: Cough, Wheezing, Sputum production Cardiovascular: DENIES: Chest pain, Palpitations, Dyspnea on Exertion Gastrointestinal: DENIES: Constipation, Diarrhea Genitourinary: COMPLAINS OF: Urinary frequency, Dysuria, DENIES: Hematuria Musculoskeletal: DENIES: Joint pain, Stiffness Integumentary: COMPLAINS OF: Pruritus, DENIES: Abnormal pigmentation Neurologic: DENIES: Headache, Localized weakness, Paresthesias Psychiatric: DENIES: Confusion Past Family Social History Allergies: Coded Allergies: levofloxacin (Unverified Allergy, Severe, HIVES, SHORTNESS OF BREATH, ) penicillin G (Unverified Allergy, Intermediate, HIVES, 11/21/17) vancomycin (Unverified Allergy, Intermediate, HIVES, SOB, 11/21/17) *MDRO Multi-Drug Resistant Organism (Verified Allergy, Unknown, 11/21/17) MRSA sulfamethoxazole (Verified Allergy, Unknown, 11/21/17) trimethoprim (Verified Allergy, Unknown, 11/21/17) Past Medical History Arthritis SVT Past Surgical History Denies appendectomy Breast surgery Cardiac ablation Reported Medications Reviewed in the EMR, no prescription medications, takes ibuprofen as needed Allergies: Coded Allergies: levofloxacin (Unverified Allergy, Severe, HIVES, SHORTNESS OF BREATH, ) penicillin G (Unverified Allergy, Intermediate, HIVES, 11/21/17) vancomycin (Unverified Allergy, Intermediate, HIVES, SOB, 11/21/17) *MDRO Multi-Drug Resistant Organism (Verified Allergy, Unknown, 11/21/17) MRSA sulfamethoxazole (Verified Allergy, Unknown, 11/21/17) trimethoprim (Verified Allergy, Unknown, 11/21/17) Active Ordered Medications Reviewed in the EMR Family History Mother had diabetes and from complications of UTI with sepsis Father is alive and well Social History Patient smokes 1-1/2 packs a day for the last 20 years 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 Cool and dry. HEAD: Atraumatic. Normocephalic. No temporal or scalp tenderness. EYES: Pupils equal round and reactive. Extraocular motions intact. No scleral icterus. No injection or drainage. ENT: Nose without bleeding, purulent drainage or septal hematoma. Throat without erythema, tonsillar hypertrophy or exudate. Uvula midline. Airway patent. NECK: Trachea midline. No JVD or lymphadenopathy. Supple, nontender, no meningeal signs. CARDIOVASCULAR: Regular rate and rhythm without murmurs, gallops, or rubs. RESPIRATORY: Clear to auscultation. Breath sounds equal bilaterally. No wheezes , rales, or rhonchi. GASTROINTESTINAL: Abdomen soft, non-tender, nondistended. No hepato-splenomegaly , or palpable masses. No guarding. MUSCULOSKELETAL: Extremities without clubbing, cyanosis, or edema. No joint tenderness, effusion, or edema noted. No calf tenderness. Negative Homans sign bilaterally. NEUROLOGICAL: Awake and alert. Cranial nerves II through XII intact. Motor and sensory grossly within normal limits. Five out of 5 muscle strength in all muscle groups. Normal speech. Laboratory Laboratory Tests Test 11/22/17 05:23 White Blood Count 12.6 Red Blood Count 3.99 Hemoglobin 12.3 Hematocrit 35.9 Mean Corpuscular Volume 89.9 Mean Corpuscular Hemoglobin 30.7 Mean Corpuscular Hemoglobin Concent 34.2 Red Cell Distribution Width 13.8 Platelet Count 161 Mean Platelet Volume 10.0 Neutrophils (%) (Auto) 78.2 Lymphocytes (%) (Auto) 11.1 Monocytes (%) (Auto) 9.5 Eosinophils (%) (Auto) 0.9 Basophils (%) (Auto) 0.3 Neutrophils # (Auto) 9.9 Lymphocytes # (Auto) 1.4 Monocytes # (Auto) 1.2 Eosinophils # (Auto) 0.1 Basophils # (Auto) 0.0 CBC Comment DIFF FINAL Differential Comment Blood Urea Nitrogen 13 Creatinine 0.90 Random Glucose 106 Calcium Level 8.5 Sodium Level 139 Potassium Level 3.4 Chloride Level 109 Carbon Dioxide Level 22.9 Anion Gap 7 Estimat Glomerular Filtration Rate 65 Date/Time Source Procedure Growth Status 11/21/17 09:20 Blood Peripheral Aerobic Blood Culture - Preliminary NO GROWTH IN 1 DAY Resulted 11/21/17 09:20 Anaerobic Blood Culture - Preliminary Gram Negative Patrica Resulted 11/21/17 08:50 Urine Clean Catch Urine Culture - Preliminary Gram Negative Patrica Resulted Result Diagram: 11/22/1752211/22/17522 Assessment and Plan Problem List: (1) Gram negative septicemia ICD Codes: A41.50 - Gram-negative sepsis, unspecified Status: Acute Plan: Likely secondary to kidney infection Continue IV Aztreonam Benadryl prior to each dose Repeat Blood cultures to make sure she is clearing bacteremia (2) Multiple drug allergies ICD Codes: Z88.9 - Allergy status to unspecified drugs, medicaments and biological substances status Status: Chronic (3) Urinary tract infection ICD Codes: N39.0 - Urinary tract infection, site not specified Status: Acute Katherin Nino MD Nov 22, 2017 18:56
[2017-11-22 20:00] VITALS: BP 176/79; PULSE 91; RESP 20; TEMP 98.3; O2SAT 97
[2017-11-23] VITALS (8 sets, daily range): BP systolic 108–178; BP diastolic 78–102; PULSE 72–92; RESP 20; TEMP 96.2–100.6; O2SAT 91–96
[2017-11-23] MEDS: diphenhydrAMINE HCL 50 MG/ML VIAL IV PUSH PRN ×3 (04:31→20:31)
[2017-11-23] MEDS: AZTREONAM INJ 1,000 MG in SODIUM CHLORIDE 0.9% INJ 100 ML IV SCH ×3 (04:31→20:32)
[2017-11-23] MEDS: IBUPROFEN 400 MG TAB PO PRN (04:31)
[2017-11-23] MEDS: SODIUM CHLOR 0.9% 1000 ML INJ 1,000 ML IV SCH ×2 (04:35→13:33)
[2017-11-23 06:54] LABS: AUTOMATED NEUTROPHIL # 10.1 TH/MM3 (1.8-7.7); BASOPHIL # 0.1 TH/MM3 (0-0.2); BASOPHIL % 0.4 % (0.0-2.0); EOSINOPHIL # 0.3 TH/MM3 (0-0.4); EOSINOPHIL % 2.1 % (0.0-4.0); HEMATOCRIT 34.8 % (35.0-46.0); HEMOGLOBIN 11.6 GM/DL (11.6-15.3); LYMPH % 8.6 % (9.0-44.0); LYMPHOCYTE # 1.1 TH/MM3 (1.0-4.8); MEAN CELL VOLUME 88.6 FL (80.0-100.0); MEAN CORPUSCULAR HEMOGLOBIN 29.5 PG (27.0-34.0); MEAN CORPUSCULAR HGB CONC 33.3 % (32.0-36.0); MEAN PLATELET VOLUME 9.6 FL (7.0-11.0); MONO % 8.2 % (0.0-8.0); NEUT % 80.7 % (16.0-70.0); PLATELET COUNT 215 TH/MM3 (150-450); RED BLOOD COUNT 3.93 MIL/MM3 (4.00-5.30); RED CELL DISTRIBUTION WIDTH 14.3 % (11.6-17.2); WHITE BLOOD COUNT 12.6 TH/MM3 (4.0-11.0)
[2017-11-23] MEDS: POLYETHYLENE GLYCOL 17 GM PKG PO SCH (08:14)
[2017-11-23] MEDS: SODIUM CHLORIDE 0.9% FLUSH 10 ML FLUSH IV FLUSH SCH ×2 (08:15→20:32)
[2017-11-23] MEDS ORDERED: BISACODYL EC 5 MG TABEC PO ONE (11:30)
--- NOTE | 2017-11-23 11:49 | HHI.PR ---
Subjective Remarks Patient seen and evaluated today in follow-up for bacteremia and urinary tract infection. No further fevers. Patient mild constipation today. Tolerating antibiotics without difficulty. Objective Vitals Vital Signs Date Time Temp Pulse Resp B/P (MAP) Pulse Ox O2 Delivery O2 Flow Rate FiO2 11/23/17 09:17 88 154/98 (116) 11/23/17 07:50 97.1 88 20 177/81 (113) 91 11/23/17 00:00 98.7 75 20 139/81 (100) 92 11/22/17 20:00 98.3 91 20 176/79 (111) 97 11/22/17 16:00 97.6 98 18 133/84 (100) 96 11/22/17 12:00 97.8 108 18 137/88 (104) 96 I/O 11/22/17 11/22/17 11/22/17 11/23/17 11/23/17 11/23/17 07:00 15:00 23:00 07:00 15:00 23:00 Intake Total 1100 ml 1500 ml 1460 ml Balance 1100 ml 1500 ml 1460 ml Intake Oral 600 ml 360 ml IV Total 1100 ml 900 ml 1100 ml # Voids 3 4 10 Result Diagram: 11/23/17 0530 11/22/17 0523 Objective Remarks GENERAL: This is a well-nourished, well-developed patient, in no apparent distress. CARDIOVASCULAR: Regular rate and rhythm without murmurs, gallops, or rubs. RESPIRATORY: Clear to auscultation. Breath sounds equal bilaterally. No wheezes , rales, or rhonchi. GASTROINTESTINAL: Abdomen soft, non-tender, nondistended. Normal active bowel sounds MUSCULOSKELETAL: Right flank pain, Extremities without clubbing, cyanosis, or edema. NEURO: Alert & Oriented x4 to person, place, time, situation. Moves all ext x4 A/P Problem List: (1) Urinary tract infection ICD Code: N39.0 - Urinary tract infection, site not specified Status: Acute Plan: Patient will continue with IV antibiotics with Benadryl, will follow up Escherichia coli in urine and likely also in blood Continue with pain medication Infectious disease consult appreciated (2) Constipation ICD Code: K59.00 - Constipation, unspecified Plan: add bowel regimen Discharge Planning home 1-2 days pending culture results and sensitivities Carola Aguilar MD Nov 23, 2017 11:49
[2017-11-23] MEDS ORDERED: PROMETHAZINE HCL 25 MG TAB PO PRN (14:45)
[2017-11-23 15:53] LABS: BICARBONATE 22.8 MEQ/L (21.0-32.0); CALCIUM 9.2 MG/DL (8.5-10.1)
[2017-11-23 15:57] LABS: CREATININE 0.79 MG/DL (0.50-1.00)
[2017-11-23] MEDS ORDERED: cloNIDine HCL 0.1 MG TAB PO PRN (17:00)
[2017-11-23] MEDS: DOCUSATE SODIUM 100 MG CAP PO SCH (20:32)
[2017-11-24] VITALS: BP 128/75; PULSE 71; RESP 20; TEMP 98.8; O2SAT 94
[2017-11-24] MEDS: diphenhydrAMINE HCL 50 MG/ML VIAL IV PUSH PRN ×3 (04:24→20:18)
[2017-11-24] MEDS: AZTREONAM INJ 1,000 MG in SODIUM CHLORIDE 0.9% INJ 100 ML IV SCH ×3 (04:24→20:19)
[2017-11-24] MEDS: IBUPROFEN 400 MG TAB PO PRN ×2 (04:32→17:56)
[2017-11-24 05:36] LABS: AUTOMATED NEUTROPHIL # 6.7 TH/MM3 (1.8-7.7); BASOPHIL % 0.5 % (0.0-2.0); EOSINOPHIL # 0.2 TH/MM3 (0-0.4); EOSINOPHIL % 2.3 % (0.0-4.0); HEMATOCRIT 37.6 % (35.0-46.0); HEMOGLOBIN 12.2 GM/DL (11.6-15.3); LYMPH % 17.7 % (9.0-44.0); LYMPHOCYTE # 1.7 TH/MM3 (1.0-4.8); MEAN CELL VOLUME 88.1 FL (80.0-100.0); MEAN CORPUSCULAR HEMOGLOBIN 28.5 PG (27.0-34.0); MEAN CORPUSCULAR HGB CONC 32.3 % (32.0-36.0); MEAN PLATELET VOLUME 9.1 FL (7.0-11.0); MONO % 10.8 % (0.0-8.0); NEUT % 68.7 % (16.0-70.0); PLATELET COUNT 251 TH/MM3 (150-450); RED BLOOD COUNT 4.27 MIL/MM3 (4.00-5.30); RED CELL DISTRIBUTION WIDTH 13.9 % (11.6-17.2); WHITE BLOOD COUNT 9.6 TH/MM3 (4.0-11.0)
[2017-11-24 07:30] VITALS: BP 134/82; PULSE 66; RESP 20; TEMP 96.7; O2SAT 96
[2017-11-24] MEDS: SODIUM CHLORIDE 0.9% FLUSH 10 ML FLUSH IV FLUSH SCH ×2 (09:28→20:19)
[2017-11-24] MEDS: DOCUSATE SODIUM 100 MG CAP PO SCH ×2 (09:28→20:19)
[2017-11-24] MEDS: POLYETHYLENE GLYCOL 17 GM PKG PO SCH (09:28)
[2017-11-24] MEDS ORDERED: SOD PHOSPHATE/SOD BIPHOSPHATE (ADULT) ENEMA 133ML RECTAL ONE (11:00)
[2017-11-24 11:50] VITALS: BP 129/67; PULSE 67; RESP 20; TEMP 96.2; O2SAT 96
--- NOTE | 2017-11-24 12:23 | HHI.PR ---
Subjective Remarks Patient seen and evaluated and follow-up for hypertension, bacteremia and urinary tract infection with evidence of sepsis. Overall improved but there is still a bit of a fever 6 overnight. Patient also says she seems to have some sort of reaction to the amlodipine given for blood pressure control. Objective Vitals Vital Signs Date Time Temp Pulse Resp B/P (MAP) Pulse Ox O2 Delivery O2 Flow Rate FiO2 11/24/17 07:30 96.7 66 20 134/82 (99) 96 11/24/17 00:00 98.8 71 20 128/75 (92) 94 11/23/17 20:00 98.2 72 20 108/78 (88) 96 Automatic Cuff 11/23/17 17:10 160/94 (116) 11/23/17 15:50 100.6 92 20 178/91 (120) 91 11/23/17 12:31 178/102 (127) I/O 11/23/17 11/23/17 11/23/17 11/24/17 11/24/17 11/24/17 07:00 15:00 23:00 07:00 15:00 23:00 Intake Total 1460 ml 924 ml 460 ml 1540 ml Balance 1460 ml 924 ml 460 ml 1540 ml Intake Oral 360 ml 360 ml 1440 ml IV Total 1100 ml 924 ml 100 ml 100 ml # Voids 10 6 21 # Bowel Movements 0 0 Result Diagram: 11/24/17 0441 11/23/17 1535 Objective Remarks GENERAL: This is a well-nourished, well-developed patient, in no apparent distress. CARDIOVASCULAR: Regular rate and rhythm without murmurs, gallops, or rubs. RESPIRATORY: Clear to auscultation. Breath sounds equal bilaterally. No wheezes , rales, or rhonchi. GASTROINTESTINAL: Abdomen soft, non-tender, nondistended. Normal active bowel sounds MUSCULOSKELETAL: Right flank pain, Extremities without clubbing, cyanosis, or edema. NEURO: Alert & Oriented x4 to person, place, time, situation. Moves all ext x4 A/P Problem List: (1) Urinary tract infection ICD Code: N39.0 - Urinary tract infection, site not specified Status: Acute Plan: Patient will continue with IV antibiotics with Benadryl, will follow up Escherichia coli in urine and likely also in blood Continue with pain medication Infectious disease consult appreciated (2) Constipation ICD Code: K59.00 - Constipation, unspecified Plan: Continue aggressive bowel regimen (3) HTN (hypertension) ICD Code: I10 - HTN (hypertension) Status: Chronic Plan: DC amlodipine, follow-up on lisinopril tomorrow Assessment and Plan Patient with multiple drug allergies and apparently only tolerates aztreonam with Benadryl ID consult appreciated We will need clarifications plan for discharge antibiotics given this patient's concurrent bacteremia and UTI Discharge Planning home 1-2 days pending culture results and sensitivities Carola Aguilar MD Nov 24, 2017 12:23
[2017-11-24 15:57] VITALS: BP 141/78; PULSE 79; RESP 20; TEMP 98.5; O2SAT 100
--- NOTE | 2017-11-24 18:16 | HHI.IDPN ---
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 Vital Signs Date Time Temp Pulse Resp B/P (MAP) Pulse Ox O2 Delivery O2 Flow Rate FiO2 11/24/17 15:57 98.5 79 20 141/78 (99) 100 11/24/17 11:50 96.2 67 20 129/67 (87) 96 11/24/17 07:30 96.7 66 20 134/82 (99) 96 11/24/17 00:00 98.8 71 20 128/75 (92) 94 11/23/17 20:00 98.2 72 20 108/78 (88) 96 Automatic Cuff . Laboratory Tests Test 11/23/17 05:30 11/24/17 04:41 White Blood Count 12.6 TH/MM3 9.6 TH/MM3 Red Blood Count 3.93 MIL/MM3 4.27 MIL/MM3 Hemoglobin 11.6 GM/DL 12.2 GM/DL Hematocrit 34.8 % 37.6 % Mean Corpuscular Volume 88.6 FL 88.1 FL Mean Corpuscular Hemoglobin 29.5 PG 28.5 PG Mean Corpuscular Hemoglobin Concent 33.3 % 32.3 % Red Cell Distribution Width 14.3 % 13.9 % Platelet Count 215 TH/MM3 251 TH/MM3 Mean Platelet Volume 9.6 FL 9.1 FL Neutrophils (%) (Auto) 80.7 % 68.7 % Lymphocytes (%) (Auto) 8.6 % 17.7 % Monocytes (%) (Auto) 8.2 % 10.8 % Eosinophils (%) (Auto) 2.1 % 2.3 % Basophils (%) (Auto) 0.4 % 0.5 % Neutrophils # (Auto) 10.1 TH/MM3 6.7 TH/MM3 Lymphocytes # (Auto) 1.1 TH/MM3 1.7 TH/MM3 Monocytes # (Auto) 1.0 TH/MM3 1.0 TH/MM3 Eosinophils # (Auto) 0.3 TH/MM3 0.2 TH/MM3 Basophils # (Auto) 0.1 TH/MM3 0.0 TH/MM3 CBC Comment DIFF FINAL DIFF FINAL Differential Comment Laboratory Tests Test 11/23/17 15:35 Blood Urea Nitrogen 12 MG/DL Creatinine 0.79 MG/DL Random Glucose 83 MG/DL Calcium Level 9.2 MG/DL Sodium Level 137 MEQ/L Potassium Level 3.4 MEQ/L Chloride Level 104 MEQ/L Carbon Dioxide Level 22.8 MEQ/L Anion Gap 10 MEQ/L Estimat Glomerular Filtration Rate 76 ML/MIN Microbiology Date/Time Source Procedure Growth Status 11/22/17 21:00 Blood Peripheral Aerobic Blood Culture - Preliminary NO GROWTH IN 2 DAYS Resulted 11/22/17 21:00 Blood Peripheral Anaerobic Blood Culture - Preliminary NO GROWTH IN 2 DAYS Resulted Physical Exam AWAKE/ O X3 PERRL NS CHEST CTA CARDIAC RRR ABDOMEN: SOFT BS EXT: NO EDEMA Assessment & Plan Diagnosis: (1) Urinary tract infection ICD Codes: N39.0 - Urinary tract infection, site not specified Status: Acute Plan: AZACTAM CONTINUE THE SAME RENAL US NOTED WILL REPEAT UAC AND BC AND FU (2) Gram negative septicemia ICD Codes: A41.50 - Gram-negative sepsis, unspecified Status: Acute Problem Qualifiers (1) Urinary tract infection: Yasmin Torres Nov 24, 2017 18:16
[2017-11-24 20:00] VITALS: BP 133/64; PULSE 72; RESP 20; TEMP 97.6; O2SAT 96
[2017-11-25] VITALS: BP 120/69; PULSE 66; RESP 20; TEMP 98.2; O2SAT 94
[2017-11-25] MEDS: AZTREONAM INJ 1,000 MG in SODIUM CHLORIDE 0.9% INJ 100 ML IV SCH ×4 (04:17→21:53)
[2017-11-25] MEDS: diphenhydrAMINE HCL 50 MG/ML VIAL IV PUSH PRN ×2 (04:17→11:41)
[2017-11-25] MEDS: IBUPROFEN 400 MG TAB PO PRN (04:22)
[2017-11-25 08:00] VITALS: BP 136/76; PULSE 73; RESP 14; TEMP 97.6; O2SAT 96
[2017-11-25] MEDS: POLYETHYLENE GLYCOL 17 GM PKG PO SCH (08:33)
[2017-11-25] MEDS: DOCUSATE SODIUM 100 MG CAP PO SCH ×2 (08:33→21:46)
[2017-11-25] MEDS: LISINOPRIL 10 MG TAB PO SCH (08:33)
[2017-11-25] MEDS: SODIUM CHLORIDE 0.9% FLUSH 10 ML FLUSH IV FLUSH SCH ×2 (08:34→21:46)
[2017-11-25 12:00] VITALS: BP 116/72; PULSE 78; RESP 14; TEMP 96.6; O2SAT 97
--- NOTE | 2017-11-25 15:52 | HHI.IDPN ---
Subjective Subjective Remarks Feels better No fevers Some pain in rt flank Allergies: Coded Allergies: levofloxacin (Unverified Allergy, Severe, HIVES, SHORTNESS OF BREATH, ) penicillin G (Unverified Allergy, Intermediate, HIVES, 11/21/17) vancomycin (Unverified Allergy, Intermediate, HIVES, SOB, 11/21/17) *MDRO Multi-Drug Resistant Organism (Verified Allergy, Unknown, 11/21/17) MRSA sulfamethoxazole (Verified Allergy, Unknown, 11/21/17) trimethoprim (Verified Allergy, Unknown, 11/21/17) Objective . Vital Signs Date Time Temp Pulse Resp B/P (MAP) Pulse Ox O2 Delivery O2 Flow Rate FiO2 11/25/17 12:00 96.6 78 14 116/72 (87) 97 11/25/17 08:00 97.6 73 14 136/76 (96) 96 11/25/17 00:00 98.2 66 20 120/69 (86) 94 Manual Cuff/Auscultation 11/24/17 20:00 97.6 72 20 133/64 (87) 96 11/24/17 15:57 98.5 79 20 141/78 (99) 100 11/25/17 11/25/17 11/26/17 15:00 23:00 07:00 Intake Total 462 ml Balance 462 ml Intake Oral 462 ml . Laboratory Tests Test 11/24/17 04:41 White Blood Count 9.6 TH/MM3 Red Blood Count 4.27 MIL/MM3 Hemoglobin 12.2 GM/DL Hematocrit 37.6 % Mean Corpuscular Volume 88.1 FL Mean Corpuscular Hemoglobin 28.5 PG Mean Corpuscular Hemoglobin Concent 32.3 % Red Cell Distribution Width 13.9 % Platelet Count 251 TH/MM3 Mean Platelet Volume 9.1 FL Neutrophils (%) (Auto) 68.7 % Lymphocytes (%) (Auto) 17.7 % Monocytes (%) (Auto) 10.8 % Eosinophils (%) (Auto) 2.3 % Basophils (%) (Auto) 0.5 % Neutrophils # (Auto) 6.7 TH/MM3 Lymphocytes # (Auto) 1.7 TH/MM3 Monocytes # (Auto) 1.0 TH/MM3 Eosinophils # (Auto) 0.2 TH/MM3 Basophils # (Auto) 0.0 TH/MM3 CBC Comment DIFF FINAL Differential Comment Microbiology Date/Time Source Procedure Growth Status 11/22/17 21:00 Blood Peripheral Aerobic Blood Culture - Preliminary NO GROWTH IN 3 DAYS Resulted 11/22/17 21:00 Blood Peripheral Anaerobic Blood Culture - Preliminary NO GROWTH IN 3 DAYS Resulted Physical Exam AWAKE/ O X3 PERRL NS CHEST CTA CARDIAC RRR ABDOMEN: SOFT BS EXT: NO EDEMA Assessment & Plan Diagnosis: (1) Gram negative septicemia ICD Codes: A41.50 - Gram-negative sepsis, unspecified Status: Acute Plan: Repeat blood cultures are negative Add Doxy 100 mg po bid If she tolerates it and repeat blood cultures are negative - then can be discharged on PO Doxy tomorrow. (2) Multiple drug allergies ICD Codes: Z88.9 - Allergy status to unspecified drugs, medicaments and biological substances status Status: Chronic (3) Urinary tract infection ICD Codes: N39.0 - Urinary tract infection, site not specified Status: Acute Problem Qualifiers (1) Urinary tract infection: Katherin Nino MD Nov 25, 2017 15:52
[2017-11-25 16:00] VITALS: BP 129/87; PULSE 86; RESP 14; TEMP 96.3; O2SAT 92
--- NOTE | 2017-11-25 18:53 | HHI.PR ---
Subjective Remarks Patient has been feeling better. No new complaints today. Plan to convert to doxycycline with monitoring given her broad allergic profile. Objective Vital Signs Date Time Temp Pulse Resp B/P (MAP) Pulse Ox O2 Delivery O2 Flow Rate FiO2 11/25/17 16:00 96.3 86 14 129/87 (101) 92 11/25/17 12:00 96.6 78 14 116/72 (87) 97 11/25/17 08:00 97.6 73 14 136/76 (96) 96 11/25/17 00:00 98.2 66 20 120/69 (86) 94 Manual Cuff/Auscultation 11/24/17 20:00 97.6 72 20 133/64 (87) 96 I/O 11/24/17 11/24/17 11/24/17 11/25/17 11/25/17 11/25/17 07:00 15:00 23:00 07:00 15:00 23:00 Intake Total 1540 ml 902 ml 1060 ml 462 ml Balance 1540 ml 902 ml 1060 ml 462 ml Intake Oral 1440 ml 802 ml 960 ml 462 ml IV Total 100 ml 100 ml 100 ml # Voids 21 4 6 6 # Bowel Movements 0 0 0 1 Result Diagram: 11/24/17 0441 11/23/17 1535 Objective Remarks GENERAL: NAD, A&Ox3 HEAD: Normocephalic. NECK: Supple, trachea midline. No lymphadenopathy. EYES: No scleral icterus. No injection or drainage. CARDIOVASCULAR: Regular rate and rhythm without murmurs, gallops, or rubs. RESPIRATORY: Breath sounds equal bilaterally. No accessory muscle use. GASTROINTESTINAL: Abdomen soft, non-tender, nondistended. MUSCULOSKELETAL: No cyanosis, or edema. SKIN: Warm and dry. NEURO: No focal neurological deficitis. A/P Problem List: (1) Urinary tract infection ICD Code: N39.0 - Urinary tract infection, site not specified Status: Acute (2) Gram negative septicemia ICD Code: A41.50 - Gram-negative sepsis, unspecified Status: Acute (3) Multiple drug allergies ICD Code: Z88.9 - Allergy status to unspecified drugs, medicaments and biological substances status Status: Chronic (4) Bacteremia ICD Code: R78.81 - Bacteremia Assessment and Plan 52-year-old female admitted secondary to urinary tract infection and bacteremia Urinary tract infection Bacteremia Escherichia coli present in urine and blood Transition from aztreonam to doxycycline Monitor for reactions to doxycycline Possible discharge tomorrow if doxycycline as tolerated Hypertension Continue baseline treatment Follow blood pressures Adjust treatments as needed Problem Qualifiers (1) Urinary tract infection: Patrick Guerrero MD Nov 25, 2017 18:53
[2017-11-25 20:42] VITALS: BP 141/73; PULSE 80; RESP 18; TEMP 96.1; O2SAT 96
[2017-11-25] MEDS: DOXYCYCLINE HYCLATE 100 MG TAB PO SCH (21:46)
[2017-11-26 00:04] VITALS: BP 115/57; PULSE 74; RESP 16; TEMP 98.3; O2SAT 94
[2017-11-26 08:00] VITALS: BP 121/68; PULSE 63; RESP 16; TEMP 96.4; O2SAT 100
[2017-11-26 08:26] LABS: HEMATOCRIT 40.2 % (35.0-46.0); HEMOGLOBIN 13.1 GM/DL (11.6-15.3); MEAN CELL VOLUME 88.7 FL (80.0-100.0); MEAN CORPUSCULAR HEMOGLOBIN 28.9 PG (27.0-34.0); MEAN CORPUSCULAR HGB CONC 32.6 % (32.0-36.0); MEAN PLATELET VOLUME 8.9 FL (7.0-11.0); RED BLOOD COUNT 4.53 MIL/MM3 (4.00-5.30); RED CELL DISTRIBUTION WIDTH 14.4 % (11.6-17.2); WHITE BLOOD COUNT 11.9 TH/MM3 (4.0-11.0)
[2017-11-26 08:33] LABS: BICARBONATE 23.6 MEQ/L (21.0-32.0); CALCIUM 9.6 MG/DL (8.5-10.1)
[2017-11-26 08:37] LABS: CREATININE 0.73 MG/DL (0.50-1.00)
[2017-11-26 08:41] LABS: PLATELET COUNT 452 TH/MM3 (150-450)
[2017-11-26] MEDS: LISINOPRIL 10 MG TAB PO SCH (08:44)
[2017-11-26] MEDS: DOXYCYCLINE HYCLATE 100 MG TAB PO SCH (08:45)
[2017-11-26] MEDS: DOCUSATE SODIUM 100 MG CAP PO SCH (08:45)
[2017-11-26] MEDS: POLYETHYLENE GLYCOL 17 GM PKG PO SCH (08:46)
[2017-11-26] MEDS: SODIUM CHLORIDE 0.9% FLUSH 10 ML FLUSH IV FLUSH SCH (08:46)
[2017-11-26] MEDS ORDERED: DOXY100T PO (09:31)
[2017-11-26] MEDS ORDERED: LACTTAB8 PO (09:31)
[2017-11-26] MEDS ORDERED: LISI10TA3 PO (09:31)
[2017-11-26] MEDS: AZTREONAM INJ 1,000 MG in SODIUM CHLORIDE 0.9% INJ 100 ML IV SCH (12:00)
--- NOTE | 2017-11-26 14:51 | HHI.DS ---
Discharge Summary Admission Date Nov 21, 2017 at 13:39 Discharge Date: Nov 26, 2017 Admitting Diagnosis UTI (1) Urinary tract infection ICD Code: N39.0 - Urinary tract infection, site not specified Diagnosis: Principal Status: Acute (2) Constipation ICD Code: K59.00 - Constipation, unspecified Diagnosis: Principal (3) HTN (hypertension) ICD Code: I10 - HTN (hypertension) Diagnosis: Principal Status: Chronic (4) Bacteremia ICD Code: R78.81 - Bacteremia Diagnosis: Principal Procedures None Brief History - From Admission This patient is a very pleasant 52-year-old female with history of SVT with cardiac ablation. Overall she has been in a reasonable state of health until the last several days when she started having severe dysuria with fever. Her fever was as high as 103.7. She came to the hospital on Tuesday with these complaints and was given antibiotics for urinary tract infection. Cultures have since resulted in it is an E. coli which is sensitive to multiple antibiotics however the patient has a allergy profile which reports severe sensitivity to levofloxacin, penicillin vancomycin, sulfa and trimethoprim. Is seen back in the emergency room today due to increased symptoms of fever and dysuria despite antibiotic therapy with metronidazole. Patient has been admitted to the hospital for treatment of urinary tract infection with evidence of sepsis. Patient has leukocytosis, fever and the source appears to be a urinary tract infection. CBC/BMP: 11/26/17 0655 11/26/17 0655 Significant Findings Laboratory Tests Test 11/23/17 15:35 11/24/17 04:41 11/26/17 06:55 Potassium Level 3.4 MEQ/L (3.5-5.1) Estimat Glomerular Filtration Rate 76 ML/MIN (>89) 83 ML/MIN (>89) Monocytes (%) (Auto) 10.8 % (0.0-8.0) Monocytes # (Auto) 1.0 TH/MM3 (0-0.9) White Blood Count 11.9 TH/MM3 (4.0-11.0) Platelet Count 452 TH/MM3 (150-450) PE at Discharge GENERAL: This is a well-nourished, well-developed patient, in no apparent distress. CARDIOVASCULAR: Regular rate and rhythm without murmurs, gallops, or rubs. RESPIRATORY: Clear to auscultation. Breath sounds equal bilaterally. No wheezes , rales, or rhonchi. GASTROINTESTINAL: Abdomen soft, non-tender, nondistended. Normal active bowel sounds MUSCULOSKELETAL: Right flank pain, Extremities without clubbing, cyanosis, or edema. NEURO: Alert & Oriented x4 to person, place, time, situation. Moves all ext x4 Hospital Course Mrs. Shanks is a 52-year-old female. She was recently admitted secondary to urinary tract infection with sepsis. Cultures were followed and patient ended up having a positive blood culture. In the hospital she was treated with aztreonam. She had moderate reactivity with this so this was dose of Benadryl. Cultures showed sensitivity to tetracycline class. Infectious disease has selected doxycycline to discharge the patient with. Due to her diverse antibiotic allergy profile doxycycline was tested with 2 doses, patient did not react. Patient is medically stable at this point for discharge to home on doxycycline to complete her treatment. She'll take doxycycline for 10 days. Medically stable for discharge today. Pt Condition on Discharge: Stable Discharge Disposition: Discharge Home Discharge Time: <= 30 minutes Discharge Instructions DIET: Follow Instructions for: As Tolerated, No Restrictions Activities you can perform: Regular-No Restrictions Follow up Referrals: PCP Follow-up - 2 Weeks New Medications: Lactobacillus Acidophilus (Lactobacillus Acidophilus) 1 Billion Cell Tab 1 TAB PO TIDAC for Nutritional Supplement, #30 TAB 0 Refills Doxycycline Hyclate (Doxycycline Hyclate) 100 Mg Tab 100 MG PO Q12HR for Infection, #20 TAB Lisinopril (Lisinopril) 10 Mg Tab 10 MG PO DAILY for Blood Pressure Management, #30 TAB Continued Medications: Tramadol (Ultram) 50 Mg Tab 50 MG PO Q8H PRN for PAIN, #10 TAB 0 Refills Discontinued Medications: Metronidazole (Flagyl) 250 Mg Tab 250 MG PO TID for Infection for 7 Days, TAB 0 Refills Patrick Guerrero MD Nov 26, 2017 14:51
== END 2017-11-26 12:40 | disposition home or self-care (01) | DRG 872 ==
LOC: PHED 08:40 → PHEDA 10:54 → INTOOBSV 10:54 → PH3A 11:45 → OBSVTOIN 13:39 → PH3A 18:12
PROVIDERS: ADMIT Hospitalist; ATTEND Hospitalist
PROC: 02HV33Z Insertion of Infusion Device into Superior Vena Cava, Percutaneous Approach (ICD-10-PCS; principal; 2017-11-23)
DX: A41.50 Gram-negative sepsis, unspecified (principal); I10 Essential (primary) hypertension; N39.0 Urinary tract infection, site not specified; B96.20 Unspecified Escherichia coli [E. coli] as the cause of diseases classified elsewhere; L29.9 Pruritus, unspecified; T50.905A Adverse effect of unspecified drugs, medicaments and biological substances, initial encounter; K59.00 Constipation, unspecified; F17.210 Nicotine dependence, cigarettes, uncomplicated; M19.90 Unspecified osteoarthritis, unspecified site; Z88.1 Allergy status to other antibiotic agents; Z87.440 Personal history of urinary (tract) infections; Z88.0 Allergy status to penicillin; Z88.9 Allergy status to unspecified drugs, medicaments and biological substances
CPT/HCPCS: 76775; 76937; 80048; 80053; 81001; 83605; 85025; 85027; 87040; 87077; 87086; 87186; 87205; 96365; 96367; J1200; J1580; J2405; J7030